=== PATIENT | female | born 2000 ===

== ENCOUNTER 2022-09-24 18:35 | Outpatient (REF) | payer OTHER, SELFPAY ==
[2022-09-29 17:07] LABS: Age Gdln ACOG Testing Note (.); IGP, rfx Aptima HPV ASCU Note (.)
== END 2022-09-24 18:36 | disposition home or self-care (01) ==
LOC: LAB 18:35
PROVIDERS: Visit Provider Obstetrics & Gynecology
DX: Z01.419 Encounter for gynecological examination (general) (routine) without abnormal findings (principal)
CPT/HCPCS: G0145